=== PATIENT | female | born 1955 | race Caucasian/White ===

== ENCOUNTER → 2019-04-02 10:55 | Outpatient (CLI) | payer OTHER, SELFPAY ==
[2019-04-02 13:03] LABS: Protein, Urine (Random) 28.4 mg/dL (<11.9); Protein:Creat Ratio 200 mg/g CRE (0-200)
[2019-04-02 13:11] LABS: Albumin, Serum 4.1 g/dL (3.2-5.0); BUN 34 mg/dL (7-18); BUN/Creat Ratio 25.8 RATIO (10-20); Calcium,Total 9.3 mg/dL (8.5-10.1); Chloride 97 mmol/L (98-107); Creatinine, Serum 1.32 mg/dL (0.55-1.02); EST Glomerular Filtration Rate 43 mL/min (>60); Est Glom Filt Rate - Afr Amer 52 mL/min (>60); Glucose 123 mg/dL (74-106); Phosphorus 3.3 mg/dL (2.5-4.9); Potassium 3.6 mmol/L (3.5-5.1); Sodium Level 137 mmol/L (136-145)
== END ==
PROVIDERS: Family Provider Family Medicine; PCP Family Medicine; Visit Provider Internal Medicine Nephrology
DX: E11.22 Type 2 diabetes mellitus with diabetic chronic kidney disease (principal); N18.3 Chronic kidney disease, stage 3 (moderate)
CPT/HCPCS: 36415; 80069; 82570; 84156

== ENCOUNTER 2020-05-19 10:00 | Emergency (ER) | payer OTHER, SELFPAY ==
[2020-05-19 10:01] VITALS: BP 116/74; PULSE 108; RESP 17; TEMP 36.6; O2SAT 97; BMI 33.5
--- NOTE | 2020-05-19 10:15 | RAD_ITS ---
STUDY: X-RAY CHEST REASON FOR EXAM: Female, 64 years old. Chest pain, episode of hypotension today -- feeling better TECHNIQUE: PA and lateral views of the chest. COMPARISON: None. FINDINGS: EKG electrodes are seen. Elevation of the right hemidiaphragm. Increased linear markings in the right middle lobe suggestive of linear atelectasis and/or scarring. Normal size heart. Normal mediastinum and wilber. Normal visualized pulmonary arteries. There is atherosclerotic calcification of the aortic arch with tortuosity. There are diffuse degenerative changes of the visualized thoracic spine. Prior fusion of the lower cervical spine. There is no demonstrated abnormality of the visualized soft tissue structures of the upper abdomen. RAD/Chest PA and Lateral IMPRESSION: Minimally increased linear markings in the right middle lobe suggests ongoing atelectasis and/or scarring. Electronically Signed: Rene Arteaga, at 12:08 EDT , Service support ,
--- NOTE | 2020-05-19 10:15 | EKG12_ITS ---
Test Reason : DYSRHYTHMIA Blood Pressure : / mmHG Vent. Rate : 100 BPM Atrial Rate : 100 BPM P-R Int : 132 ms QRS Dur : 084 ms QT Int : 334 ms P-R-T Axes : 010 008 009 degrees QTc Int : 430 ms Normal sinus rhythm Nonspecific T wave abnormality Abnormal ECG No previous ECGs available Confirmed by COREY BENNETT, KAMLESH ([id number]), material expeditor RICK MOSES ([id number]) on 05/30/2020 11:09:05 AM Referred By: MR Confirmed By:KAMLESH NICOLE MD
--- NOTE | 2020-05-19 10:18 | ED.VIS.GEN ---
History of Present Illness Chief Complaint: Hypotension Narrative: Patient presenting secondary to frequent falls and hypotension. Patient has an underlying history of diabetes hypertension hyperlipidemia. Patient states that over the course of the last 2 weeks she has fallen at least 3 times. Patient reports that the first time she fell it was associated with a potential syncopal episode. She states that she was in her bathroom, had been standing for a little while and tilted her head back to put in some eyedrops and then all of a sudden woke up on the floor. Patient reports that she suffered some bruises secondary to that. Patient states that on Saturday, and then again on Saturday she had 2 more falls. She states that those were not necessarily associated with any change in position of her neck, but rather were associated with her legs spasming and then giving out on her. Patient states that she will have some leg instability when she goes from seated to standing, but denies that this is really ever associated with any lightheadedness. Patient does state that she has had vertigo in the past, and this does not really feel consistent with that. Patient apparently had some tremors today and was noted to be hypotensive at 72/54, now is presenting to the emergency department. She denies any chest pain, palpitations, shortness of breath, recent illness such as fever cough nausea vomiting or diarrhea. No changes in her medications. No numbness or weakness, visual changes or speech difficulty noted. Review of systems otherwise negative. Past Medical History - Allergies and Home Meds Allergies/Adverse Reactions: Allergies No Known Allergies Allergy (Verified 05/19/20 10:01) Primary Care Physician: Francisco Jimenez III, MD [Primary Care Provider] - Prior records reviewed: Yes Past Medical History: - - Diabetes, hypertension, hyperlipidemia Smoking Status: Never smoker Alcohol: None Drugs: None Review of Systems All systems negative except as indicated General: Reports: - - Frequent falls, unsteadiness of the legs, syncope Eyes: Denies: Visual changes - bilaterally, Diplopia ENT: Denies: Rhinorrhea, Sore throat Cardiovascular: Denies: Chest pain, Palpitations Respiratory: Denies: Dyspnea, Cough, Dyspnea on exertion Gastrointestinal: Denies: Abdominal pain, Nausea, Vomiting, Diarrhea, Melena, Hematochezia Genitourinary: Denies: Dysuria, Hematuria, Frequency Musculoskeletal: Denies: Back pain, Extremity Pain Skin: Denies: Rash, Wounds Neurological: Denies: Headache, Weakness, Numbness Physical Exam Vital Signs/Narrative: Vital Signs Temp Pulse Resp BP Pulse Ox 05/19/20 10:01 97.8 F 108 H 17 116/74 97 Inital Vital Signs reviewed: Yes General: Well nourished, Well developed, No Acute Distress Head: Normocephalic, Atraumatic Eyes: Perrl, EOMI ENT: Moist mucous membranes, No rhinorrhea Neck: Supple, Nontender, - - Normal range of motion of the neck with no reproduction of symptoms Cardiovascular: Regular rate, Regular rhythm, No murmurs, - - 2+ radial, 2+ DP pulses bilaterally symmetric Respiratory: No distress, CTA bilaterally, Chest nontender Abdomen: Soft, Nontender, Nondistended, Normal bowel sounds Back: Nontender, Normal Inspection Extremities: Nontender, No edema Skin: Normal color, No rash Neurological: Alert, Oriented x3, Cranial nerves II-XII grossly intact, Normal Strength, Normal Sensation, - - NIH stroke scale is 0, no abnormal cerebellar signs Psychological: Normal affect, Normal Mood Diagnostic/Tx/Re-eval Clinical Impression(s) from Imaging Studies Chest X-Ray 05/19/20 10:15 IMPRESSION: Minimally increased linear markings in the right middle lobe suggests ongoing atelectasis and/or scarring. Electronically Signed: Rene Arteaga, at 12:08 EDT , Service support , Laboratory Data 05/19/20 05/19/20 05/19/20 10:30 10:30 11:43 WBC 13.2 H RBC 3.70 L Hgb 13.3 Hct 38.9 MCV 105.1 H MCH 35.9 H MCHC 34.2 RDW Std Deviation 51.7 H RDW Coeff of Jacy 13.5 Plt Count 134 L MPV 9.2 Immature Gran % (Auto) 0.400 Neut % (Auto) 85.4 H Lymph % (Auto) 6.1 L Duval % (Auto) 7.2 Eos % (Auto) 0.7 Baso % (Auto) 0.2 Absolute Neuts (auto) 11.2 H Absolute Lymphs (auto) 0.80 L Nucleated RBC % 0 Sodium 136 Potassium 3.8 Chloride 99 Carbon Dioxide 28.0 Anion Gap 9 BUN 18 Creatinine 1.04 H Estim Creat Clear Calc 53.84 Est GFR (MDRD) Af Amer 69 Est GFR (MDRD) Non-Af 57 L BUN/Creatinine Ratio 17.3 Glucose 134 H Calcium 8.6 Magnesium 1.0 L Troponin I < 0.015 Urine Color Christine Urine Clarity Sl. Cloudy Urine pH 5.0 Ur Specific [place] 1.020 Urine Protein 30 H Urine Glucose (UA) Normal Urine Ketones 15 H Urine Occult Blood 10 H Urine Nitrite Positive H Urine Bilirubin 3 H Urine Urobilinogen 8 H Ur Leukocyte Esterase 100 H Urine RBC 0 SEEN Urine WBC 0-5 SEEN Ur Squamous Epith Cells 5-10 SEEN Urine Bacteria 1+ Urine Mucus 0 SEEN - EKG Initial EKG Interpretation: - - Sinus rhythm of [address] segments, diffuse nonspecific T wave flattening is noted. Normal WI and QTc intervals. No evidence of acute ischemia or arrhythmia. - Medical Decision Making Patient presented secondary to frequent falls. Patient had the syncopal episode 2 weeks ago where she cocked her head back, I considered the possibility of vertebrobasilar insufficiency, but this is not a reproducible finding at this time, and I do not feel that angiogram imaging of the head or neck are indicated. Chest x-ray shows scarring per radiology. My personal review agrees with this. CBC uncovered the patient have a leukocytosis of 13 so I did add on a urinalysis to check for signs of infection. Chemistry and troponin found to be negative. Urinalysis shows positive nitrites with bacteria likely indicating the patient's symptoms are secondary to a indolent urinary tract infection. Patient was started on a course of Keflex. Urine was sent for culture. Patient will follow-up with primary care. ED Disposition - Plan for ED Patient: Disposition: Home or Assisted Living Diagnosis: Urinary tract infection Instructions: ED CYSTITIS Female Adult Prescriptions: Cephalexin [Keflex] 500 mg PO Q12 #14 cap Prescription Printed Referrals: Francisco Jimenez III, MD [Primary Care Provider] - 3-5 Days
[2020-05-19 10:24] VITALS: BP 112/65
[2020-05-19 10:45] LABS: Absolute Neutrophil Count 11.2 X10^3/uL (2.0-7.7); Basophil# 0.03 X10^3/uL; Basophil% 0.2 % (0-1); Eosinophil# 0.09 X10^3/uL; Eosinophils% 0.7 % (0-5); Hematocrit 38.9 % (37-47); Hemoglobin 13.3 g/dL (12.0-15.0); Lymphocyte % 6.1 % (19-41); Mean Corp Hgb Conc 34.2 g/dL (32-36); Mean Corpuscular Hgb 35.9 pg (27.0-32.0); Mean Corpuscular Volume 105.1 fL (81-99); Mean Platelet Vol. 9.2 fl (6.2-12.0); Monocyte# 0.95 X10^3/uL; Monocyte% 7.2 % (0-10); NRBC Flagged by Analyzer 0 % (0-5); Neutrophil # 11.23 X10^3/uL (2.7-7.7); Neutrophil % 85.4 % (47-70); Platelet Count 134 K/mm3 (150-450); RBC Distribution Width CV 13.5 % (11.6-14.6); RBC Distribution Width SD 51.7 fl (35.1-43.9); White Blood Count 13.2 K/mm3 (4.4-11.0)
[2020-05-19 11:03] LABS: Anion Gap 9 (5-15); BUN 18 mg/dL (7-18); BUN/Creat Ratio 17.3 RATIO (10-20); Calcium,Total 8.6 mg/dL (8.5-10.1); Chloride 99 mmol/L (98-107); Creatinine, Serum 1.04 mg/dL (0.55-1.02); EST Glomerular Filtration Rate 57 mL/min (>60); Est Glom Filt Rate - Afr Amer 69 mL/min (>60); Estimated Creatinine Clearance 53.84 ml/min; Glucose 134 mg/dL (74-106); Potassium 3.8 mmol/L (3.5-5.1); Sodium Level 136 mmol/L (136-145)
[2020-05-19 11:48] LABS: Mucous, Urine 0 SEEN /hpf (<or=2+); Red Blood Cells-Urine 0 SEEN /hpf (0-5)
[2020-05-19 11:50] LABS: Color, Urine Amber (Yellow); Glucose, Dipstick Normal (Normal); Ketone-Dipstick 15 mg/dl (Negative); Leukocyte Esterase-Dipstick 100 /ul (Negative); Nitrite-Dipstick Positive (Negative); Occult Blood-Urine 10 /ul (Negative); Protein-Dipstick 30 mg/dl (Negative); Urine Clarity Sl. Cloudy (Clear); Urine Urobilinogen 8 mg/dl (Normal)
[2020-05-19 11:51] LABS: Urine Bilirubin Dipstick 3 mg/dL (Negative)
[2020-05-19 11:56] LABS: Squamous Epithelial Cells - UA 5-10 SEEN /hpf (5-10); White Blood Cells 0-5 SEEN /hpf (0-5)
[2020-05-19 11:57] LABS: Bacteria 1+ /hpf (None Seen)
[2020-05-19 12:34] VITALS: BP 119/67; PULSE 87; RESP 18
[2020-05-19 13:24] VITALS: BP 116/78; PULSE 81; RESP 13
== END 2020-05-19 13:28 | disposition home or self-care (01) ==
PROVIDERS: Emergency Provider Emergency Medicine; PCP Family Medicine
DX: N39.0 Urinary tract infection, site not specified (principal); R29.6 Repeated falls; E11.9 Type 2 diabetes mellitus without complications; I10 Essential (primary) hypertension; E78.5 Hyperlipidemia, unspecified; Z79.4 Long term (current) use of insulin; Z79.899 Other long term (current) drug therapy
CPT/HCPCS: 71046; 80048; 81001; 83735; 84484; 85025; 87086; 87088; 93005; 99284; A4216

== ENCOUNTER 2020-08-11 11:47 | Day surgery (SDC) | payer OTHER, SELFPAY ==
[2020-08-11] VITALS (8 sets, daily range): BP systolic 112–137; BP diastolic 58–80; PULSE 61–81; RESP 16–18; TEMP 36.9–37.3; O2SAT 94–100; BMI 36.6
--- NOTE | 2020-08-11 | EMB_PTH ---
PATIENT: PEDRITO SIMS LOC: [facility] [place] U[place][id number] AGE/SX: 65/F ROOM: RE08/11/[address]: Dr. Bonita Azevedo MD : [id number] BED: DIS: 08/11/2020 SPEC #: [id number] RECD: 08/11/20 15:07 STATUS: VANE TEODORO #: [id number] JACQUE: 08/11/20 00:[address]: Bonita Azevedo DEPT: SURGICAL PATHOLOGY RECD BY: Daniel Thompson ENTERED: 08/12/20 08:54 SP TYPE: ENDOM BX/C LINDSAY DR: Dr. Francisco Jimenez III, MD Tissues: Endometrium, NOS Procedures: Surgery Specimen Level IV HEADER OPERATION: Hysteroscopy, D & C Symphion, polypectomy PRE-OP DIAGNOSIS: PMB, thickened endometrial lining TISSUE SUBMITTED: Endometrial curettings MICROSCOPIC DIAGNOSIS Endometrium, curettings: Polypoid fragments of simple cystic hyperplasia without atypia. AM:сергей 08/15/20 MICROSCOPIC DESCRIPTION Slides are reviewed. GROSS DESCRIPTION Received in fixative is one container labeled with the patient's name and designated endometrial curettings. The specimen consists of multiple irregular fragments of colbert soft tissue that in aggregate measure 2.5 x 2 x 0.2 cm. The specimen is totally submitted in one cassette. / SJ:сергей 08/12/20 TC:5 CPT: 80943
[2020-08-11 12:17] LABS: Hematocrit 38.2 % (37-47); Hemoglobin 12.8 g/dL (12.0-15.0); Mean Corp Hgb Conc 33.5 g/dL (32-36); Mean Corpuscular Hgb 35.1 pg (27.0-32.0); Mean Corpuscular Volume 104.7 fL (81-99); Mean Platelet Vol. 8.6 fl (6.2-12.0); Platelet Count 160 K/mm3 (150-450); RBC Distribution Width CV 13.6 % (11.6-14.6); RBC Distribution Width SD 51.6 fl (35.1-43.9); Red Blood Count 3.65 M/mm3 (4.2-5.4); White Blood Count 7.4 K/mm3 (4.4-11.0)
[2020-08-11] MEDS: Ketorolac 15 MG/ML Vial IV (12:40)
[2020-08-11] MEDS: Lactated Ringers 1,000 ML 100 ML IV (12:48)
[2020-08-11] MEDS: Acetaminophen 500 MG Tablet 1000 MG PO (12:49)
--- NOTE | 2020-08-11 12:49 | PCM.HP.BLA ---
History and Physical Date of Admission: 08/11/20 Physical under scanned documents was reviewed. No clinically relevant updates since it was scanned in. Procedure Criteria Procedure Type: Elective COVID Risk Discussion: The surgeon/proceduralist and patient have discussed in detail the risk of exposure to and/or potential harm posed by the COVID-19 virus with having a surgery/procedure at this time versus the risk of delaying the surgery/procedure. It is not possible to know either the risk of delaying the surgery or procedure or chance of getting an infection with perfect accuracy, but a joint decision was made between the patient and the surgeon/proceduralist to proceed at this time with the scheduled surgery/procedure as indicated on the consent form.
[2020-08-11 13:21] LABS: Bedside Glucose 136 mg/dL (70-110)
--- NOTE | 2020-08-11 14:18 | DCINST_ITS ---
Discharge Diet: No Restrictions Discharge Activity: Return to Normal Activity, May Shower, May Take a Tub Bath - in 2 weeks. Allergies/Adverse Reactions: Allergies No Known Allergies Allergy (Verified 08/11/20 12:31) Medications to take at Discharge Atenolol 50 mg PO DAILY 05/19/20 Atorvastatin Calcium [Lipitor] 80 mg PO DAILY 05/19/20 Ezetimibe [Zetia] 10 mg PO DAILY 05/19/20 Gabapentin 1,200 cap PO TID 05/19/20 Lantus 30 units SUBLINGUAL QHS 05/19/20 Liraglutide [Victoza 3-Nadeem] 1.8 mg SUBLINGUAL DAILY 05/19/20 Spironolactone 25 mg PO DAILY 05/19/20 Lansoprazole [Prevacid] 30 mg PO DAILY 08/05/20 Primary Care Physician: Francisco Jimenez III, MD [Primary Care Provider] - Test Results: Test results from this visit will be discussed in further detail at your follow- up appointment, if applicable. Please Follow Up With: Bonita Azevedo MD - [phone] When: in 2 weeks or as needed- may be a virtual visit to discuss pathology
--- NOTE | 2020-08-11 14:37 | PCM.OPRPT ---
Report of Operation Date of Procedure: 08/11/20 Pre-Operative Diagnosis: Postmenopausal bleeding, thickened endometrium on ultrasound Post-Operative Diagnosis: Same plus endometrial polyp Surgery/Procedure Performed:: Hysteroscopy D&C with endometrial polyp resection Description of Surgical Findings:: Normal-appearing cervix and vagina, endometrium with polypoid appearing material, otherwise atrophic, appeared to be a submucosal anterior fundal fibroid management advisor: None Type of Anesthesia:: MAC/Supplemental/Local Special Medications: none Specimen's removed: endometrial curettings Drains: none Estimated Blood Loss (mL): 20 Fluids Replaced: 750 cc Description of Procedure: The patient was taken to the OR where she was prepped and draped in dorsal lithotomy position. The weighted speculum was placed in the vagina and the anterior lip of the cervix was grasped with a single-tooth tenaculum. A paracervical block was administered with [1% lidocaine with 1-100,000 epinephrine solution]. The cervix was dilated serially with Hegar dilators. The Symphion hysteroscope was placed into the uterine cavity and the above findings were noted. Bilateral tubal ostia [were] identified. The Symphion resection device was readied and inserted. It was used to remove the endometrial polypoid appearing tissue, then do a visual D&C of the endometrial cavity. Pressure was section of the anterior fibroid was completed in order to allow better visualization of endometrial cavity. The instruments were removed from the vagina. The specimen was handed off and sent to pathology. All sponge and needle counts were correct. Vaginal sweep was performed by me. The patient was awakened and taken to the recovery room in stable condition. Hysteroscopic calculated fluid deficit is 400 cc of normal saline Start time: 1426 Stop time:143 Grafts/Implants Used: none - Complications none - Admit VTE Documentation VTE Present on Admission: No VTE Mechan Device Prophylaxis: SCD's VTE Pharm Prophylaxis ordered?: No Reason prophylaxis not ordered:: Procedure Not Indicated
== END 2020-08-11 15:37 | disposition home or self-care (01) ==
LOC: SDC 11:48 → AC 11:48
PROVIDERS: Anesthesiology; PCP Family Medicine; Referring Provider Obstetrics & Gynecology; Visit Provider Obstetrics & Gynecology
PROC: 0UB98ZZ Excision of Uterus, Via Natural or Artificial Opening Endoscopic (ICD-10-PCS; CPT 58558; principal; 2020-08-11 13:30)
DX: N85.01 Benign endometrial hyperplasia (principal); N95.0 Postmenopausal bleeding; Z20.828 Contact with and (suspected) exposure to other viral communicable diseases; I12.9 Hypertensive chronic kidney disease with stage 1 through stage 4 chronic kidney disease, or unspecified chronic kidney disease; E11.22 Type 2 diabetes mellitus with diabetic chronic kidney disease; N18.9 Chronic kidney disease, unspecified; E11.42 Type 2 diabetes mellitus with diabetic polyneuropathy; E78.5 Hyperlipidemia, unspecified; K21.9 Gastro-esophageal reflux disease without esophagitis; Z78.0 Asymptomatic menopausal state; Z79.4 Long term (current) use of insulin
CPT/HCPCS: 00952; 58558; 82962; 85027; 87635; 88305; C9803; J7120; J2405; U0003

== ENCOUNTER → 2022-04-25 | Outpatient (CLI) | payer MEDICARE, SELFPAY ==
[2022-04-25 12:06] LABS: Albumin, Serum 2.9 g/dL (3.2-5.0); BUN 20 mg/dL (7-18); BUN/Creat Ratio 16.3 RATIO (10-20); Chloride 96 mmol/L (98-107); Creatinine, Serum 1.23 mg/dL (0.55-1.02); EST Glomerular Filtration Rate 46 mL/min (>60); Est Glom Filt Rate - Afr Amer 56 mL/min (>60); Glucose 270 mg/dL (74-106); Phosphorus 2.8 mg/dL (2.5-4.9); Potassium 4.1 mmol/L (3.5-5.1); Sodium Level 133 mmol/L (136-145)
== END | disposition home or self-care (01) ==
PROVIDERS: Visit Provider Internal Medicine Nephrology
DX: N18.2 Chronic kidney disease, stage 2 (mild) (principal)
CPT/HCPCS: 36415; 80069

== ENCOUNTER → 2023-08-27 | Outpatient (CLI) | payer OTHER, SELFPAY ==
[2023-08-27 12:53] LABS: Albumin, Serum 3.6 g/dL (3.2-5.0); BUN 38 mg/dL (7-18); BUN/Creat Ratio 20.5 RATIO (10-20); Calcium,Total 10.1 mg/dL (8.5-10.1); Chloride 100 mmol/L (98-107); Creatinine, Serum 1.85 mg/dL (0.55-1.02); EST Glomerular Filtration Rate 29 mL/min (>60); Est Glom Filt Rate - Afr Amer 35 mL/min (>60); Glucose 236 mg/dL (74-106); Phosphorus 3.4 mg/dL (2.5-4.9); Potassium 5.2 mmol/L (3.5-5.1); Sodium Level 134 mmol/L (136-145)
[2023-08-27 13:27] LABS: Microalbumin,Random Urine 44.3 mg/L (NO RANGE EST.); Microalbumin:Creatinine Ratio 50.4 mg/g CRE (<30 mg/g CRE)
== END | disposition home or self-care (01) ==
LOC: POLAB3 11:46
PROVIDERS: Visit Provider Internal Medicine Nephrology
DX: N17.9 Acute kidney failure, unspecified (principal)
CPT/HCPCS: 36415; 80069; 82043; 82570